=== PATIENT | male | born 1955 | race Caucasian/White ===

== ENCOUNTER 2018-05-29 22:51 | Emergency (ER) | payer OTHER ==
[~2018-05-29] VITALS: Ht 177.8 cm; Wt 76.7 kg
[2018-05-29 23:18] VITALS: BP 164/98
== END 2018-05-29 23:24 | disposition home or self-care (01) ==
LOC: ER 22:51
DX: T63.481A Toxic effect of venom of other arthropod, accidental (unintentional), initial encounter (principal)
CPT/HCPCS: 99282